=== PATIENT | female | born 1995 ===

== ENCOUNTER 2022-03-14 11:27 | Emergency (ER) | payer MEDICAID, SELFPAY ==
[2022-03-14 11:53] VITALS: BP 117/78; PULSE 96; RESP 18; TEMP 36.7; O2SAT 99; BMI 35.4
== END 2022-03-14 12:48 | disposition left against medical advice (07) ==
PROVIDERS: Emergency Provider Emergency Medicine
DX: R05.9 Cough, unspecified (principal); R11.2 Nausea with vomiting, unspecified
CPT/HCPCS: 99281